=== PATIENT | female | born 1970 | race Caucasian/White ===

== ENCOUNTER 2017-03-06 16:32 | Emergency (ER) | payer MEDICAID ==
[2017-03-06] MEDS ORDERED: ONDANSETRON HCL IV 4 MG/2 ML VIAL IVP ONE (17:30)
[2017-03-06] MEDS ORDERED: 0.9 % SODIUM CHLORIDE 1,000 ML BAG IV ONE ×2 (17:32→18:49)
[2017-03-06 18:14] LABS: URINE APPEARANCE CLEAR; URINE BILIRUBIN NEGATIVE (NEGATIVE); URINE BLOOD NEGATIVE (NEGATIVE); URINE COLOR YELLOW; URINE GLUCOSE (UA) NEGATIVE (NEGATIVE); URINE KETONE 15 mg/dL (NEGATIVE); URINE LEUKOCYTE ESTERASE NEGATIVE (NEGATIVE); URINE NITRITE NEGATIVE (NEGATIVE); URINE PROTEIN NEGATIVE (NEGATIVE); URINE UROBILINOGEN 0.2 E.U./dL (0.20 - 1.00)
[2017-03-06 18:15] LABS: HEMOGLOBIN 12.2 gm/dl (11.6-16.0); MEAN CELL VOLUME 84.4 fl (81-97); MEAN CORPUSCULAR HEMOGLOBIN 27.1 pg (27-33); MEAN CORPUSCULAR HGB CONC 32.1 g/dl (32-36); MEAN PLATELET VOLUME 8.8 fl (7.4-10.4); PLATELET COUNT 200 K/uL (130-400); RED CELL DISTRIBUTION WIDTH 17.9 % (11.5-14.5)
--- NOTE | 2017-03-06 18:19 | Emergency Department Record ---
History of Present Illness - General Chief complaint: Vomiting Stated complaint: VOMITING Time Seen by Provider: 03/06/17 17:26 Source: Patient Mode of Arrival: Ambulatory Limitations: No limitations - History of Present Illness Initial comments: pt has had multiple episodes of vomiting since yesterday. she is on chemo MD complaint: Nausea, Vomiting Onset/Timin -: Days(s) Description of Vomiting: Bilious Radiation: None Consistency: Constant Improves with: None Worsens with: None Context: Other Associated Symptoms: Nausea/vomiting - Related Data Home Medications Medication Instructions Recorded Confirmed Last Taken Acyclovir [Zovirax] 400 mg PO BID 03/06/17 03/06/17 Unknown Magnesium Oxide 500 mg PO DAILY 03/06/17 03/06/17 Unknown Ondansetron [Zofran Odt] 8 mg PO Q8H PRN 03/06/17 03/06/17 Unknown Oxycodone HCl 5 mg PO Q6H PRN 03/06/17 03/06/17 Unknown Prochlorperazine Maleate 10 mg PO DAILY 03/06/17 03/06/17 Unknown Ranitidine HCl [Zantac] 150 mg PO BID 03/06/17 03/06/17 Unknown Tacrolimus [Prograf] 1 mg PO BID 03/06/17 03/06/17 Unknown Ursodiol [Actigall] 300 mg PO BID 03/06/17 03/06/17 Unknown Allergies Allergy/AdvReac Type Severity Reaction Status Date / Time sulfamethoxazole Allergy Severe HIVES Verified 10/05/15 23:20 [From Bactrim] trimethoprim [From Bactrim] Allergy Severe HIVES Verified 10/05/15 23:20 Travel Screening - Travel/Exposure Within Last 30 Days Have you traveled within the last 30 days?: No Review of Systems Reviewed: No additional complaints except as noted below Constitutional: Reports: As per HPI. Denies: Chills, Fever, Malaise, Night sweats, Weakness, Weight change Eyes: Reports: As per HPI. Denies: Eye discharge, Eye pain, Photophobia, Vision change ENT: Reports: As per HPI. Denies: Congestion, Dental pain, Ear pain, Epistaxis , Hearing loss, Throat pain Respiratory: Reports: As per HPI. Denies: Cough, Dyspnea, Hemoptysis, Stridor, Wheezes Cardiovascular: Reports: As per HPI. Denies: Arrhythmia, Chest pain, Dyspnea on exertion, Edema, Murmurs, Orthopnea, Palpitations, Paroxysmal nocturnal dyspnea, Rheumatic Fever, Syncope Endocrine: Reports: As per HPI. Denies: Fatigue, Heat or cold intolerance, Polydipsia, Polyuria Gastrointestinal: Reports: As per HPI. Denies: Abdominal pain, Constipation, Diarrhea, Hematemesis, Hematochezia, Melena, Nausea, Vomiting Genitourinary: Reports: As per HPI. Denies: Abnormal menses, Discharge, Dyspareunia, Dysuria, Frequency, Hematuria, Incontinence, Retention, Urgency Musculoskeletal: Reports: As per HPI. Denies: Arthralgia, Back pain, Gout, Joint swelling, Myalgia, Neck pain Skin: Reports: As per HPI. Denies: Bruising, Change in color, Change in hair/ nails, Lesions, Pruritus, Rash Neurological: Reports: As per HPI. Denies: Abnormal gait, Confusion, Headache, Numbness, Paresthesias, Seizure, Tingling, Tremors, Vertigo, Weakness Psychiatric: Reports: As per HPI. Denies: Anxiety, Auditory hallucinations, Depression, Homicidal thoughts, Suicidal thoughts, Visual hallucinations Hematological/Lymphatic: Reports: As per HPI. Denies: Anemia, Blood Clots, Easy bleeding, Easy bruising, Swollen glands Past Medical History - SOCIAL HISTORY Smoking Status: Never smoker Alcohol Use: None Drug Use: None - RESPIRATORY Hx Respiratory Disorders: No - CARDIOVASCULAR Hx Cardio Disorders: No - NEURO Hx Neuro Disorders: No - GI Hx GI Disorders: Yes Hx Irritable Bowel: Yes - Hx Genitourinary Disorders: No - ENDOCRINE Hx Endocrine Disorders: No - MUSCULOSKELETAL Hx Musculoskeletal Disorders: Yes Hx Fibromyalgia: Yes Comment:: scoliosis - PSYCH Hx Psych Problems: Yes Hx Anxiety: Yes - HEMATOLOGY/ONCOLOGY Hx Hematology/Oncology Disorders: Yes Hx Cancer: Yes Hx Chemotherapy: Yes Hx Radiation Therapy: No Comment:: Pt dx Leukemia 07/12/2015 Family Medical History Any Significant Family History?: Yes Hx Cancer: Grandparents Hx Heart Disease: Grandparents Physical Exam - General General Appearance: Alert, Oriented x3, Cooperative, Mild distress - Head Head exam: Normal inspection - Eye Eye exam: Normal appearance, PERRL, EOMI Pupils: Normal accommodation - ENT ENT exam: Normal exam, Mucous membranes dry, Normal external ear exam, Normal orophraynx, TM's normal bilaterally Ear exam: Normal external inspection. negative: External canal tenderness Nasal Exam: Normal inspection. negative: Discharge, Sinus tenderness Mouth exam: Normal external inspection, Tongue normal Teeth exam: Normal inspection. negative: Dental caries Throat exam: Normal inspection. negative: Tonsillar erythema, Tonsillar exudate - Neck Neck exam: Normal inspection, Full ROM. negative: Tenderness - Respiratory Respiratory exam: Normal lung sounds bilaterally. negative: Respiratory distress - Cardiovascular Cardiovascular Exam: Normal rhythm, Normal heart sounds, Tachycardia - GI/Abdominal GI/Abdominal exam: Soft, Normal bowel sounds. negative: Tenderness - Rectal Rectal exam: Deferred - exam: Deferred - Extremities Extremities exam: Normal inspection, Full ROM, Normal capillary refill. negative: Tenderness - Back Back exam: Reports: Normal inspection, Full ROM. Denies: Muscle spasm, Rash noted, Tenderness - Neurological Neurological exam: Alert, CN II-XII intact, Normal gait, Oriented X3 - Psychiatric Psychiatric exam: Normal affect, Normal mood - Skin Skin exam: Dry, Intact, Normal color, Warm Course Vital Signs 03/06/17 16:57 Temperature 98.5 F Pulse Rate 102 H Respiratory 12 Rate Blood Pressure 116/76 Pulse Ox 97 - Reevaluation(s) Reevaluation #1: 03/06/17 19:26 pt feels much better Medical Decision Making - Lab Data Result diagrams: 03/06/17 17:20 03/06/17 17:20 Lab Results 03/06/17 03/06/17 Range/Units 17:20 17:20 WBC 10.0 (4.2-12.2) K/uL RBC 4.50 (3.80-5.40) M/uL Hgb 12.2 (11.6-16.0) gm/dl Hct 38.0 (35.0-47.0) % MCV 84.4 (81-97) fl MCH 27.1 (27-33) pg MCHC 32.1 (32-36) g/dl RDW 17.9 H (11.5-14.5) % Plt Count 200 (130-400) K/uL MPV 8.8 (7.4-10.4) fl Eosinophils % Not Reportable Basophils % Not Reportable Urine Color Yellow Urine Appearance Clear Urine pH 5.5 (5.0-8.0) Ur Specific [place] >= 1.030 (1.002-1.030) Urine Protein Negative (NEGATIVE) Urine Glucose (UA) Negative (NEGATIVE) Urine Ketones 15 mg/dl H (NEGATIVE) Urine Blood Negative (NEGATIVE) Urine Nitrite Negative (NEGATIVE) Urine Bilirubin Negative (NEGATIVE) Urine Urobilinogen 0.2 (0.20 - 1.00) E.U./dL Ur Leukocyte Esterase Negative (NEGATIVE) Disposition Disposition: Discharge Clinical Impression: Dehydration Vomiting Qualifiers: Vomiting type: unspecified Vomiting Intractability: intractable Nausea presence : with nausea Qualified Code(s): R11.2 - Nausea with vomiting, unspecified Disposition: Home, Self-Care Condition: (1) Good Instructions: Acute Nausea and Vomiting (ED), Dehydration (ED) Additional Instructions: follow up with family doctor. return sooner if worse Forms: Patient Portal Access Quality - Quality Measures Quality Measures: N/A - Blood Pressure Screening Does Patient Have Any of the Following: No Blood Pressure Classification: Normal BP Reading Systolic Measurement: 116 Diastolic Measurement: 76 Screening for High Blood Pressure: < Normal BP, F/U Not Required > [G8783]
[2017-03-06 18:29] LABS: BLOOD UREA NITROGEN 17 mg/dL (6-20); CREATININE 0.7 mg/dL (0.5-0.9); EST GLOMERULAR FILTRATION RATE > 60 mL/min
[2017-03-06 18:30] LABS: TOTAL PROTEIN 7.6 g/dL (6.6-8.7)
[2017-03-06 18:32] LABS: GLUCOSE,RANDOM 106 mg/dL (74-109)
[2017-03-06 18:34] LABS: ALB/GLOB RATIO 1.2 (1.1-1.8); ALBUMIN 4.1 g/dL (4.0-5.0); ALT/SGPT 19 U/L (<33); AST/SGOT 27 U/L (10.0-35.0)
[2017-03-06 18:35] LABS: ALKALINE PHOSPHATASE 63 U/L (35-104)
== END 2017-03-06 19:43 | disposition home or self-care (01) ==
LOC: ER 16:32
DX: E86.0 Dehydration (principal); R11.2 Nausea with vomiting, unspecified
CPT/HCPCS: 99284 ×2; 96374; 83690; 80053; 81003; 85027; J2405; J7030

== ENCOUNTER 2017-03-08 14:32 | Emergency (ER) | payer MEDICAID ==
[2017-03-08] MEDS ORDERED: 0.9 % SODIUM CHLORIDE 1,000 ML BAG IV ONE ×2 (14:55→15:40)
[2017-03-08] MEDS ORDERED: ONDANSETRON HCL IV 4 MG/2 ML VIAL IV ONE (14:55)
[2017-03-08 15:08] LABS: HEMATOCRIT 41.7 % (35.0-47.0); HEMOGLOBIN 13.6 gm/dl (11.6-16.0); MEAN CELL VOLUME 83.2 fl (81-97); MEAN CORPUSCULAR HEMOGLOBIN 27.1 pg (27-33); MEAN CORPUSCULAR HGB CONC 32.6 g/dl (32-36); MEAN PLATELET VOLUME 8.9 fl (7.4-10.4); PLATELET COUNT 207 K/uL (130-400); RED BLOOD COUNT 5.01 M/uL (3.80-5.40); RED CELL DISTRIBUTION WIDTH 17.8 % (11.5-14.5); WHITE BLOOD COUNT W/O DIFF 17.3 K/uL (4.2-12.2)
--- NOTE | 2017-03-08 15:10 | Emergency Department Record ---
History of Present Illness - General Chief complaint: Nausea, Vomiting, Diarrhea Stated complaint: NAUSEA,VOMITTING X 2WEEKS Time Seen by Provider: 03/08/17 14:35 Source: Patient Mode of Arrival: Ambulatory Limitations: No limitations - History of Present Illness Initial comments: The patient is here due to intermittent nausea and vomiting for a week. She was in the ED 2 days ago for the same thing and felt better after fluids and IV Zofran. Now the symptoms seem to have returned. She states she has been vomiting about 5 times a day but denies any diarrhea. She is having upper abdominal cramping mildly but that started after the vomiting. The patient states she has had similar problems chronically since she was diagnosed and treated for Leukemia last year but the symptoms usually do not last this long. There are no new medicines and she has not run out of any medicines. The patient also denies any CP, fever, chills, ST, cough, or dysuria. MD complaint: Nausea, Vomiting Onset/Timin -: Week(s) Description of Vomiting: Bilious Associated Abdominal Pain: Yes Location: Diffuse Severity: Mild Improves with: None Worsens with: None Associated Symptoms: Denies other symptoms - Related Data Allergies Allergy/AdvReac Type Severity Reaction Status Date / Time sulfamethoxazole Allergy Severe HIVES Verified 10/05/15 23:20 [From Bactrim] trimethoprim [From Bactrim] Allergy Severe HIVES Verified 10/05/15 23:20 Travel Screening - Travel/Exposure Within Last 30 Days Have you traveled within the last 30 days?: No - Travel/Exposure Within Last Year Have you traveled outside the [place] in the last year?: No - Additonal Travel Details Have you been exposed to anyone with a communicable illness?: No - Travel Symptoms Symptom Screening: None Review of Systems Constitutional: Reports: Malaise. Denies: Chills, Fever Eyes: Denies: Eye discharge ENT: Denies: Congestion Respiratory: Denies: Cough, Dyspnea Past Medical History - SOCIAL HISTORY Smoking Status: Never smoker Alcohol Use: None Drug Use: None - RESPIRATORY Hx Respiratory Disorders: No - CARDIOVASCULAR Hx Cardio Disorders: No - NEURO Hx Neuro Disorders: No - GI Hx GI Disorders: Yes Hx Irritable Bowel: Yes - Hx Genitourinary Disorders: No - ENDOCRINE Hx Endocrine Disorders: No - MUSCULOSKELETAL Hx Musculoskeletal Disorders: Yes Hx Fibromyalgia: Yes Comment:: scoliosis - PSYCH Hx Psych Problems: Yes Hx Anxiety: Yes - HEMATOLOGY/ONCOLOGY Hx Hematology/Oncology Disorders: Yes Hx Cancer: Yes Hx Chemotherapy: Yes Hx Radiation Therapy: No Comment:: Pt dx Leukemia 07/12/2015 Family Medical History Any Significant Family History?: No Hx Cancer: Grandparents Hx Heart Disease: Grandparents Physical Exam - General General Appearance: Alert, Oriented x3, Cooperative, No acute distress - Head Head exam: Atraumatic, Normocephalic, Normal inspection - Eye Eye exam: Normal appearance, PERRL - ENT Throat exam: Normal inspection. negative: Tonsillar erythema, Tonsillar exudate - Neck Neck exam: Normal inspection, Full ROM. negative: Tenderness - Respiratory Respiratory exam: Normal lung sounds bilaterally. negative: Respiratory distress - Cardiovascular Cardiovascular Exam: Regular rate, Normal rhythm, Normal heart sounds - GI/Abdominal GI/Abdominal exam: Soft, Normal bowel sounds. negative: Tenderness - Extremities Extremities exam: Normal inspection, Full ROM, Normal capillary refill. negative: Tenderness - Neurological Neurological exam: Alert. negative: Motor sensory deficit Course Vital Signs 03/08/17 14:39 Temperature 98.8 F Pulse Rate 86 Respiratory 16 Rate Blood Pressure 128/79 Pulse Ox 100 - Reevaluation(s) Reevaluation #1: The patient is doing a lot better. She denies any pain or nausea presently and is resting comfortably. On exam her abdomen is very soft. We are waiting on the CT result. 03/08/17 16:18 Reevaluation #2: The patient is doing a lot better. She is keeping fluids down well and feels much better. I did discuss the case with Dr. Foreman at [facility] and she agrees with the plan to discharge to home. The patient is to contact Oncology if not better this week and return to the ER if worse. 03/08/17 17:10 Medical Decision Making - Data Complexity MDM Data: Labs Ordered and/or Reviewed, X-Ray Ordered and/or Reviewed - Lab Data Result diagrams: 03/08/17 14:48 03/08/17 14:48 - Radiology Data Radiology results: Report reviewed (CT: No acute changes. No surgical pathology. ) Disposition Disposition: Discharge Clinical Impression: Vomiting Qualifiers: Vomiting type: unspecified Vomiting Intractability: non-intractable Nausea presence: without nausea Qualified Code(s): R11.11 - Vomiting without nausea Disposition: Home, Self-Care Condition: (2) Stable Instructions: Acute Nausea and Vomiting (ED) Additional Instructions: Please continue your regular medicines. Please see your Oncologist if not better this week. Return to the ER for an increased vomiting, any fever or pain or bleeding. Forms: Patient Portal Access Time of Disposition: 17:13 Quality - Quality Measures Quality Measures: N/A - Blood Pressure Screening View Details: Yes Does Patient Have Any of the Following: No Blood Pressure Classification: Normal BP Reading Systolic Measurement: 111 Diastolic Measurement: 71 Screening for High Blood Pressure: < Normal BP, F/U Not Required > [G8783]
[2017-03-08 15:20] LABS: BLOOD UREA NITROGEN 12 mg/dL (6-20); CREATININE 0.7 mg/dL (0.5-0.9); EST GLOMERULAR FILTRATION RATE > 60 mL/min
[2017-03-08 15:21] LABS: TOTAL PROTEIN 7.5 g/dL (6.6-8.7)
[2017-03-08 15:22] LABS: PLATELET ESTIMATE NORMAL (NORMAL)
[2017-03-08 15:23] LABS: GLUCOSE,RANDOM 116 mg/dL (74-109)
[2017-03-08 15:25] LABS: ALBUMIN 4.2 g/dL (4.0-5.0); ALT/SGPT 17 U/L (<33); AST/SGOT 27 U/L (10.0-35.0)
[2017-03-08 15:26] LABS: ALKALINE PHOSPHATASE 61 U/L (35-104); LIPASE 17 U/L (13-60)
[2017-03-08 15:28] LABS: BILIRUBIN,DIRECT < 0.2 mg/dL (0-0.3)
[2017-03-08 15:47] LABS: URINE APPEARANCE CLEAR; URINE BILIRUBIN NEGATIVE (NEGATIVE); URINE BLOOD NEGATIVE (NEGATIVE); URINE COLOR YELLOW; URINE GLUCOSE (UA) NEGATIVE (NEGATIVE); URINE KETONE TRACE (NEGATIVE); URINE LEUKOCYTE ESTERASE NEGATIVE (NEGATIVE); URINE NITRITE NEGATIVE (NEGATIVE); URINE PROTEIN NEGATIVE (NEGATIVE); URINE UROBILINOGEN 0.2 E.U./dL (0.20 - 1.00)
--- NOTE | 2017-03-09 07:51 | CT SCAN REPORT ---
EXAM: ABDOMEN AND PELVIS CT WITHOUT CONTRAST HISTORY: NAUSEA AND VOMITING FOR ONE WEEK. RIGHT LOWER AND LEFT LOWER QUADRANT ABDOMINAL PAIN. TECHNIQUE: Contiguous axial images from the lung bases to the symphysis pubis were obtained without IV contrast. Comparison: Pelvic ultrasound 08/12/10. FINDINGS: The lung bases are clear. The liver, spleen, kidneys, adrenals, pancreas and gallbladder are normal. The visualized loops of small and large bowel are of normal caliber. Moderate fecal material throughout the colon. Normal appendix. The uterus is absent. The urinary bladder is decompressed. No free intraperitoneal fluid or adenopathy. The abdominal wall is unremarkable. Small sclerotic foci throughout the axial skeleton noted at most vertebral levels, the largest at T10 measuring 9 mm. There are a few small sclerotic foci involving the iliac wings. They measure up to 4 mm. Small sclerotic focus in the left sacrum measuring up to 5 mm. IMPRESSION: 1. NO ACUTE INFILTRATE PROCESS OF THE ABDOMEN OR PELVIS. NO RENAL CALCULI. NORMAL APPENDIX. 2. MODERATE FECAL MATERIAL THROUGHOUT THE COLON. 3. INDETERMINATE SMALL SCLEROTIC FOCI THROUGHOUT THE AXIAL SKELETON OF UNCERTAIN ETIOLOGY. COMPARISON WITH PRIOR IMAGING WOULD BE HELPFUL. IF THERE ARE ANY CONSTITUTIONAL SYMPTOMS COULD CONSIDER NONEMERGENT BONE SCAN. JOB NUMBER: [id number] [facility]
== END 2017-03-08 17:22 | disposition home or self-care (01) ==
LOC: ER 14:32
DX: R11.2 Nausea with vomiting, unspecified (principal); R19.7 Diarrhea, unspecified; R10.84 Generalized abdominal pain
CPT/HCPCS: 99284 ×2; 96374; 96361; 83690; 80076; 80048; 81003; 85027; 74176; J2405; J7030